=== PATIENT | male | born 1960 | race Two or more races ===

== ENCOUNTER 2024-09-10 09:36 | Emergency (ER) | payer BC ==
[2024-09-10 09:47] VITALS: BP 140/83; PULSE 69; RESP 20; TEMP 98.2; BMI 27.3
[2024-09-10] MEDS ORDERED: ACETAMINOPHEN 500 MG TABLET (FP) ONE (11:01)
[2024-09-10] MEDS: ACETAMINOPHEN 500 MG TABLET (FP) PO ONE (11:04)
[2024-09-10 11:13] LABS: PH,URINE 5.5 (5.0-8.0); URINE APPEARANCE CLEAR; URINE BILIRUBIN NEGATIVE (NEGATIVE); URINE COLOR YELLOW; URINE GLUCOSE (UA) 3+ (NEGATIVE); URINE KETONE NEGATIVE (NEGATIVE); URINE LEUK ESTERASE NEGATIVE (NEGATIVE); URINE NITRITE NEGATIVE (NEGATIVE); URINE PROTEIN NEGATIVE (NEGATIVE)
== END 2024-09-10 13:33 | disposition home or self-care (01) ==
LOC: JERFT 09:36
DX: M54.50 Low back pain, unspecified (principal); G89.29 Other chronic pain; R10.31 Right lower quadrant pain
CPT/HCPCS: 81003; 87086; 93005; 93010; 99284-25